=== PATIENT | female | born 1990 | race Caucasian/White ===

== ENCOUNTER 2020-02-02 07:00 | Outpatient (NON) | payer BC, SELFPAY ==
[2020-02-02 14:21] LABS: Influenza Control Positive
[2020-02-03 00:27] LABS: SARS-CoV-2 RNA PCR Negative
== END 2020-02-02 07:01 ==
PROVIDERS: PCP Family Medicine; Visit Provider Family Medicine
DX: R05 Cough (principal); Z20.828 Contact with and (suspected) exposure to other viral communicable diseases
CPT/HCPCS: 87635; 87804; C9803; U0003